=== PATIENT | female | born 1980 | race Caucasian/White ===

== ENCOUNTER 2017-10-03 08:33 | Emergency (ER) | payer MEDICAID ==
[~2017-10-03] VITALS: Ht 165.1 cm; Wt 63.6 kg
[2017-10-03 08:41] VITALS: BP 156/87
[2017-10-03] MEDS ORDERED: METF500T6 PO (08:44)
[2017-10-03 08:52] LABS: GLUCOSE,POINT OF CARE 246 MG/DL (70-110)
[2017-10-03] MEDS ORDERED: BETAMETHASONE VAL 0.1% 15 GM CREAM TP ONE (11:00)
[2017-10-03] MEDS ORDERED: PredniSONE 20 MG TABLET PO ONE (11:00)
== END 2017-10-03 11:30 | disposition home or self-care (01) ==
LOC: EMS 08:36
DX: L20.9 Atopic dermatitis, unspecified (principal); E11.9 Type 2 diabetes mellitus without complications
CPT/HCPCS: 82962; 99283; J7512

== ENCOUNTER 2025-04-07 09:20 | Emergency (ER) | payer MEDICAID, OTHER ==
[~2025-04-07] VITALS: Ht 165.1 cm; Wt 61.0 kg
[~2025-04-07 09:20] MED LIST: METF-1211 PO
[2025-04-07 09:39] VITALS: TEMP 98.6
[2025-04-07] MEDS: OxyCODONE HCL/ACETAMINOPHEN 5-325 MG TABLET PO ONE (11:35)
[2025-04-07] MEDS: LIDOCAINE 1% 10 ML VIAL ID ONE (12:41)
[2025-04-07 13:00] VITALS: BP 128/82; PULSE 89; RESP 16; O2SAT 98
[2025-04-07] MEDS ORDERED: SULF1TAB94 PO (13:37)
[2025-04-07] MEDS ORDERED: CEPH-558 PO (13:37)
== END 2025-04-07 14:17 | disposition home or self-care (01) ==
LOC: EMS 09:22
DX: L02.811 Cutaneous abscess of head [any part, except face] (principal); E11.9 Type 2 diabetes mellitus without complications; Z98.890 Other specified postprocedural states; W23.0XXA Caught, crushed, jammed, or pinched between moving objects, initial encounter
CPT/HCPCS: 99283; 10060; J3490